=== PATIENT | female | born 1955 | race Caucasian/White ===

== ENCOUNTER → 2018-04-11 10:09 | Day surgery (SDC) | payer MEDICAID ==
[~2018-04-11] VITALS: Ht 149.9 cm; Wt 73.6 kg
--- NOTE | ~2018-04-11 | OP ---
PATIENT NAME: MÓNICA CHAVIS MEDICAL RECORD: [id number] LOCATION:[facility] ADMISSION DATE: SURGEON: DIVINA CAMEJO MD DATE OF OPERATION: 04/11/2018 PROCEDURE: EGD with biopsy. PROFESSOR OF INDUSTRIAL TECHNOLOGY: Divina Camejo MD SCOPE: Olympus video gastroscope. MEDICATIONS: Per TIVA. The patient received 150 mg of propofol for this procedure, O2 at 4 liters. INDICATION FOR THE PROCEDURE: History of incipient Odonnell's esophagus and history of gastric ulcer as noted on 2014 EGD. The patient is returning for a surveillance EGD to document whether or not she indeed has Odonnell's esophagus. FINDINGS: Informed consent was given. The patient was made comfortable with the above medications. After reaching an adequate level of sedation by slow IV push, the patient was placed on her left side. The endoscope was then advanced under direct visualization through the posterior pharyngeal area and advanced to the distal esophagus. At the distal esophageal area, no evidence of Odonnell's esophagus was appreciated. Biopsies; however, were taken looking for any evidence of short segment or microscopic Odonnell's should it be present. The patient also had a hiatal hernia, which was noted both on direct and retroflexed views. On entering the stomach, we did observe healing at the antral area of the previously documented gastric ulcer, which was seen on the 2015 EGD. We did take biopsies of these previous ulcers surround, also looking for the presence of Helicobacter pylori. Within the cardia of the stomach, the patient had a very small gastric polyp and a biopsy was obtained. The duodenal bulb to the second portion had mild inflammation present. Biopsies were taken within the second portion of the duodenum. The scope was then withdrawn. IMPRESSION: 1. Only mild distal esophagitis. No evidence of Odonnell's esophagus, but biopsies taken due to the history of possible Odonnell's esophagus as noted on the path report with a 2014 EGD. 2. Small hiatal hernia. 3. Gastric polyp, 0.5 cm in size, in the cardia of the stomach, biopsied. 4. Evidence of previous gastric ulcer at the antral area. The patient only had some mild global gastritis. Biopsies taken at the antral area looking for the presence of Helicobacter pylori. 5. Mild duodenitis. Biopsies obtained. PLAN: 1. The patient is presently on 40 mg a day of omeprazole. We will ask her to stop this medicine and start famotidine at a dose of 20 mg p.o. b.i.d. 2. Follow reflux precautions stringently, both dietary and positional. 3. Caution with anti-inflammatory drugs. 4. Return to clinic on a p.r.n. basis. TRANSINT:[id number] Voice Confirmation ID: [id number] DOCUMENT ID: [id number] OPERATIVE REPORT [id number] MÓNICA CHAVIS BRENDA MD CC: RAFA BLAIR [id number] DICTATION DATE: 04/11/18 1325 RN IMAGING: 04/11/[address] [facility] [address] [place] [id number]
[~2018-04-11 10:09] MED LIST: ACETAMINOPHEN500 M1 PO; AMBIEN5 MG PO; ASPIRIN325 MG PO; ATIVAN0.5 MG PO; CARAFATE1 G PO; CLARITIN 10 MG10 MG PO; CLONAZEPAM0.125 MG/T; COZAAR25 MG PO; GABAPENTIN100 MG PO; HYDROCODONE-APA1 TAB PO; HYSINGLA ER20 MG PO; HYZAAR 50-12.51 TAB PO; IBUPROFEN800 MG PO; LEVAQUIN750 MG PO; NEXIUM20 MG PO; NEXIUM40 MG PO; OMEPRAZOLE40 MG PO; PEPCID40 MG PO; PRILOSEC10 MG PO; PRILOSEC20 MG PO; SOMA350 MG PO; ZYRTEC10 MG PO; [UNRECOGNIZED DRUG - OTHER] PO
[2018-04-11 11:33] VITALS: BP 142/77; Ht 149.9 cm; Wt 73.6 kg
[2018-04-11 12:30] LABS: HEMATOCRIT 34.9 % (36.0-48.0); HEMOGLOBIN 11.8 g/dL (12-16); MCH 30.1 pg (26.0-34.0); MCHC 33.8 g/dL (31.0-37.0); RBC 3.92 10x6/uL (4.00-5.40); RDW 13.2 % (11.5-14.5); WBC 7.1 10x3/uL (4.8-10.8)
== END | disposition home or self-care (01) ==
LOC: D.OPS 10:09
PROVIDERS: Anesthesiology
DX: K20.9 Esophagitis, unspecified (principal); K44.9 Diaphragmatic hernia without obstruction or gangrene; K31.7 Polyp of stomach and duodenum; K29.50 Unspecified chronic gastritis without bleeding; K29.80 Duodenitis without bleeding; Z01.812 Encounter for preprocedural laboratory examination